=== PATIENT | female | born 1970 | race African-American/Black ===

== ENCOUNTER 2025-08-08 15:54 | Emergency (ER) | payer SELFPAY ==
--- NOTE | 2025-08-08 16:04 | ED.SKABFB ---
HPI - Skin/Abscess/Foreign Bdy General Chief complaint: Skin/Abscess/Foreign Body Stated complaint: bump on neck Time Seen by Provider: 08/08/25 16:17 Source: patient and RN notes reviewed Mode of arrival: ambulatory Limitations: dementia History of Present Illness HPI narrative: 55-year-old female presents concern for red, tender area on her neck. Reports she has had a bump there for about 2 years that was about 2 cm in diameter. Reports over the last several days it has become red, swollen, tender, itchy. She denies any difficulty swallowing. She denies fever, body aches, chills, sweats. She denies drainage. MD complaint: other (Redness) Related Data Home Medications ?Medication ?Instructions ?Recorded ?Confirmed ?Last Taken ?Type Symbicort 08/08/25 Unknown History albuterol 08/08/25 Unknown History pantoprazole 08/08/25 Unknown History Allergies Allergy/AdvReac Type Severity Reaction Status Date / Time codeine Allergy Intermediate Itching Verified 08/08/25 16:21 Review of Systems Review of Systems: CONSTITUTIONAL: Denies malaise, chills, sweats, or fever. EYES: Denies redness, or discharge. ENT: Denies rhinorrhea, congestion, swollen lips, swollen tongue CARDIOVASCULAR: Denies chest pain, palpitations, or edema. RESPIRATORY: Denies cough or dyspnea. GASTROINTESTINAL: Denies abdominal pain, nausea, vomiting SKIN: Reports swelling, tender, red area on her neck Denies purulent drainage, vesicles, bullae, numbness, pain beyond proportion MUSCULOSKELETAL: Denies joint pain or myalgia. NEUROLOGIC: Denies headache. All systems reviewed & are unremarkable except as noted in HPI and below PMFSH Comments At time of signature, agree with nursing past medical, surgical, social and family history. There is no relevant family history pertinent to the presenting complaint Exam Narrative: GENERAL: Well-appearing, well-nourished, and in no acute distress. HEAD: Normocephalic, atraumatic. EYES: PERRLA, conjunctivae clear ENT: Mucous membranes moist. NECK: Supple. No lymphadenopathy CHEST: Clear to auscultation. No respiratory distress. HEART: Regular rate and rhythm. SKIN: Warm, dry. 5.5 x 2.5 cm raise Erythematous, indurated, tender, warm area with sharp margins noted to the anterior neck left of the midline without fluctuation. No vesicles, bullae, necrosis, ecchymosis, crepitus noted. NEURO: Alert and oriented x3. PSYCH: Normal mood and affect Course Course Emergency Course: Patient is aware of diagnosis, understands and agrees to treatment plan. Anticipatory guidance given. Patient agrees to follow-up as directed and is aware of reasons to seek care at the emergency department. Portions of this record may have been created with voice recognition software Level of Care: Express Care Visit Vital Signs Vital signs: Reviewed. MDM - Skin/Abscess/Foreign Bdy MDM Narrative Medical decision making narrative: I evaluated this in the [facility] care. History is obtained from patient who is an independent historian and physical exam was performed.? Available medical records were reviewed. ? Exam findings and relevant testing show no acute concerns or changes; patient is non-toxic appearing and is in no distress. I do not think that it is prudent to incise an attempt to drain at this time due to location and unable to confirm any presence of fluid, with no fluctuation. Patient was instructed to take antibiotic, use warm compresses and monitor the area. She was instructed to follow up if it is not improving or go to the ER for gets worse. Does not appear at this time to be erythema multiforme, bullous, SJS, TEN; no evidence at this time to suggest RMSF, NSTI, endocarditis or Lyme disease; patient looks well, nontoxic and is tolerating oral intake; no neurologic signs or symptoms; no headache, photophobia or neck pain; afebrile.? Patient does not have history of of penetrating trauma, laceration, blunt trauma, recent surgery, immunosuppression, malignancy, obesity, alcoholism, corticosteroid use.? Discussed the importance of follow-up, patient agrees; question, cellulitis versus necrotizing soft tissue infection versus abscess.?? Patient is appropriate for outpatient treatment and follow-up. Critical Care Time Critical Care Time Critical Care Time: No Discharge Plan Discharge Clinical Impression: Infected cyst of skin Patient Disposition: Home Condition: Stable Instructions: Cellulitis (ED) Additional Instructions: Please follow up with your Primary Care Doctor within 48-72 hours - call for an appointment. Rest and elevate affected area; apply moist heat 3-4 times daily for 10-15 minutes. Take Motrin 600mg every 8 hours with food for pain. Please take Antibiotics as directed. If you experience any worsening redness, swelling, streaking (red lines), fever or chills please go to the ER Patient Language: Dominican Prescriptions: New clindamycin HCl 300 mg capsule 300 mg PO Q8H 7 Days Qty: 21 0RF No Action albuterol Symbicort pantoprazole Follow-up/Referrals: Karl,Jass Sotelo MD [Primary Care Provider] Time of Disposition: 16:26
[2025-08-08 16:07] VITALS: BP 115/70; PULSE 88; RESP 16; TEMP 36.8; O2SAT 100
== END 2025-08-08 16:35 | disposition home or self-care (01) ==
PROVIDERS: Emergency Provider Nurse Practitioner; PCP Family Medicine
DX: L72.9 Follicular cyst of the skin and subcutaneous tissue, unspecified (principal); J45.909 Unspecified asthma, uncomplicated; K21.9 Gastro-esophageal reflux disease without esophagitis
CPT/HCPCS: 99203; G0463

== ENCOUNTER 2025-08-11 16:59 | Emergency (ER) | payer MEDICAID, SELFPAY ==
--- NOTE | ~2025-08-11 | CT_ITS ---
EXAMINATION: CT soft tissue neck w con DATE: 08/11/2025 19:34 INDICATION: Abscess TECHNIQUE: Computed tomography (CT) of the neck was performed with 75 mL Omnipaque-350 intravenous contrast. Automated exposure control and iterative reconstruction technique were employed. The dose-length product was 455.56 mGy-cm. COMPARISON: None FINDINGS: Orbits are normal. Small mucous retention cyst at the right sphenoid sinus. Mastoid air cells and middle ear cavities are clear. The right mastoid is hyperpneumatized. Submandibular and parotid glands are normal and symmetric. Thyroid gland is unremarkable. There are scattered normal-sized lymph nodes in the neck, no lymphadenopathy. There is a small region of skin thickening at the anterior neck slightly to the left of midline surrounding a 11 x 10 x 8 mm region of low attenuation consistent with reported draining abscess. No deeper abscess. No masses identified. The vasculature is patent and normal in caliber. Airway is unremarkable. Normal epiglottis. Mild emphysema in the visualized upper lungs. Mild to moderate lower cervical predominant spondylosis. IMPRESSION: 1. Superficial 11 x 10 x 8 mm subcutaneous abscess at the anterior left neck. No evident abscess within the musculature or deeper spaces of the neck Reviewed, dictated and finalized at location A. IMPRESSION: 1. Superficial 11 x 10 x 8 mm subcutaneous abscess at the anterior left neck. N o evident abscess within the musculature or deeper spaces of the neck
--- OUTSIDE RECORDS SUMMARY | 2025-08-11 17:00 | XMS_ITS | Clinical Summary ---
Author Organization [facility] Address [address] [facility] [address] [place] [address] Care Team Providers Care Whey Department Operator Name Role Phone Jass Barajas MD Primary Care Provider [phone] Source Comments [facility],non-owned Affiliates and Associated Physician Practices is amultiple site organization consisting of ambulatory clinics and hospital sitesin [place], [place], [place] and [place]. This disclosure is being madepursuant to the Care Everywhere program and may not contain all information available regarding this patient. Last updated 18.[facility] Health Encounters Date Type Department Care Team Description 05/26/2025 Travel from Last 3 Months Social History Tobacco Use Types Packs/Day Years Used Date Smoking Tobacco: Never Assessed Comments Unknown Sex and Gender Information Value Date Recorded Sex Assigned at Not on file Legal Sex Female 10:49 AM CDT Gender Identity Not on file Sexual Orientation Not on file Plan of Treatment Upcoming Encounters Date Type Department Care Team (Late st Contact Info) Description 08/15/2025 3:10 PM CDT Office Visit [facility] - Dermatology [address] [place] [address], [place] [id number] Halie Guzman MD [address] [place], [place] [address] [id number] Health Maintenance Due Date Last Done Comments COLOGUARD (AGES 45-75) - COL ON CA SCREENING 1971 COLON MONITORING 1971 COLONOSCOPY - COLON CA SCREENING 1971 CT COLONOGRAPHY - COLON CA SCREENING 1971 Colorectal Cancer Screening 1971 FIT - COLON CA SCREENING 1971 FLEX SIG - COLON CA SCREENING 1971 LIPID TESTING 1971 MAMMOGRAM 1971 HIV SCREENING 1986 HEPATITIS C SCREENING 06/02/1989 DTAP/TDAP/TD VACCINES (1 - Tdap) 1990 HEPATITIS B VACCINE (1 of 3 - 19+ 3-dose series) 1990 PAP SMEAR 1992 PNEUMOCOCCAL VACCINE 50+ (1 of 1 - PCV) 2021 ZOSTER VACCINE (1 of 2) 2021 COVID-19 VACCINE (1 - 2023-2 5 season) 2024 DEPRESSION SCREENING 11/30/2024 INFLUENZA VACCINE (#1) 2025 HIB VACCINE Aged Out No longer eligi ble based on patient's age to complete this topic HPV VACCINE Aged Out No longer eligi ble based on patient's age to complete this topic MENINGOCOCCAL (Group B) VACC INE SHARED DECISION-MAKING Aged Out No longer eligibl e based on patient's age to complete this topic MENINGOCOCCAL GROUPS A/C/Y/W VACCINE Aged Out No longer eligible b ased on patient's age to complete this topic Care Teams Whey Department Operator Relationship Specialty Start Date End Date Jass Barajas MD [address] [id number] PCP - General Emergency Medicine 05/26/25
--- OUTSIDE RECORDS SUMMARY | 2025-08-11 17:00 | XMS_ITS | Clinical Summary ---
Author Organization [facility] Address [address] [place] [address] Phone Care Team Providers Care Machine Sewer Name Role Phone Jass Barajas MD Primary Care Provider [phone] Social History Tobacco Use Types Packs/Day Years Used Date Smoking Tobacco: Never Assessed Comments Unknown Sex and Gender Information Value Date Recorded Sex Assigned at Not on file Legal Sex Female 12:30 PM CDT Gender Identity Not on file Sexual Orientation Not on file Plan of Treatment Health Maintenance Due Date Last Done Comments Hepatitis C Virus (HCV) Screening 1971 Mammogram 1971 TdaP Immunization 1971 Hepatitis B Immunization (1 of 3 - 19+ 3-dose series) 1990 Pap Smear 1992 Cervical Cancer Screening (CCS) 2001 HPV/Cotest 2001 Cologuard 2016 Colonoscopy 2016 Colorectal Cancer Screening 2016 Immunochemical Fecal Occult Blood 2016 Pneumococcal Immunization (5 0+ years) (1 of 1 - PCV) 2021 Zoster Immunization (1 of 2) 2021 SARS-COV-2 Immunization ( - 2023-25 season) 2024 Influenza Immunization (#1) 2025 Respiratory Syncytial Virus (RSV) Immunization (Adult) (1 - 1-dose 75+ series) 2046 Human Papillomavirus (HPV) Immunization Aged Out No longer eligible b ased on patient's age to complete this topic Meningococcal Immunization (ACWY) Aged Out No longer eligible based on patient's age to complete this topic Rotavirus Immunization Aged Out No lo nger eligible based on patient's age to complete this topic Insurance [facility] O Care Teams Machine Sewer Relationship Specialty Start Date End Date Jass Barajas MD [address] [place] [address] PCP - General Family Medicine 03/06/25
[2025-08-11 17:35] VITALS: BP 117/77; PULSE 72; RESP 16; TEMP 36.2; O2SAT 100
[2025-08-11 18:58] LABS: Hematocrit 40.9 % (37.0-47.0); Hemoglobin 12.7 g/dL (12.0-15.0); Immature Granulocyte Percent A 0.2 % (0-0.5); Lymphocytes Absolute Auto 2.47 K/mm3 (0.9-3.2); Mean Corpuscular HGB Conc 31.1 g/dl (32-36); Mean Corpuscular Hemoglobin 27.6 pg (26-34); Mean Corpuscular Volume 88.9 fl (80-100); Nucleated Red Blood Cells Absolute Auto 0.000 K/mm3 (0.0-0.012); Nucleated Red Blood Cells Perc 0.0 % (0.0-0.2); Platelet Count Result 371 k/mm3 (150-375); Red Blood Count 4.60 M/mm3 (4.2-5.4); White Blood Count 6.4 K/mm3 (4.5-10.0)
[2025-08-11 19:08] LABS: Alanine Aminotransferase 19 U/L (6-35); Albumin Level 4.3 g/dL (3.5-5.1); Alkaline Phosphatase 50 U/L (38-126); Anion Gap 10 mmol/L (4-12); Aspartate Amino Transferase 31 U/L (14-36); Bilirubin,Total 0.4 mg/dL (0.2-1.3); Blood Urea Nitrogen 13 mg/dL (7-17); Calcium 9.4 mg/dL (8.4-10.2); Carbon Dioxide 29 mmol/L (22-30); Chloride 104 mmol/L (98-107); Estimated CRCL calculation 66 ml/min; Estimated Glomerular Filt Rate 60; Glucose 99 mg/dL (65-110); Potassium 3.3 mmol/L (3.4-5.0); Sodium 143 mmol/L (137-145); Total Protein 7.5 g/dL (6.3-8.2)
--- NOTE | 2025-08-11 20:51 | ED_ITS ---
HPI - Skin/Abscess/Foreign Bdy General Chief complaint: Skin/Abscess/Foreign Body Stated complaint: bump on neck Time Seen by Provider: 08/11/25 18:26 History of Present Illness HPI narrative: Patient is a 55-year-old female who presents ER with concerns for infection to the left anterior neck. She has a cyst that has been present there for several years that has then worsened over the last few days and become much more swollen and tender. She was started on clindamycin at an urgent care. She is on day 4 and she is starting to have drainage from her neck. No difficulty breathing or swallowing. No fevers or chills or sweats. Related Data Home Medications ?Medication ?Instructions ?Recorded ?Confirmed ?Last Taken ?Type Symbicort 08/08/25 Unknown History albuterol 08/08/25 Unknown History pantoprazole 08/08/25 Unknown History Allergies Allergy/AdvReac Type Severity Reaction Status Date / Time codeine Allergy Intermediate Itching Verified 08/11/25 19:04 Review of Systems 2 Review of Systems: All systems reviewed & are unremarkable except as noted in HPI and below Constitutional: Constitutional: Reports no additional constitutional complaints Cardiovascular: Cardiovascular: Reports no additional cardiovascular complaints Respiratory: Respiratory: Reports no additional respiratory complaints Gastrointestinal: Gastrointestinal: Reports no additional gastrointestinal complaints Musculoskeletal: Musculoskeletal: Reports no additional musculoskeletal complaints Integumentary/Breasts: Skin/Breast: Reports system reviewed and no additional complaints, except as docu PMFSH Past Medical History Medical History (Updated 08/11/25 @ 22:57 by Jose Luis Wilkerson MD) GERD (gastroesophageal reflux disease) Asthma Exam 2 Narrative: GENERAL: Well-appearing, well-nourished, and in no acute distress. HEAD: Normocephalic, atraumatic. ENT: Mucous membranes moist. NECK: Left anterior neck swelling with a phone drainage consistent with infected cystic abscess. No significant cellulitis surrounding it. CHEST: Clear to auscultation. No respiratory distress. HEART: Regular rate and rhythm. Normal peripheral pulses. EXTREMITIES: Normal range of motion. No edema. NEURO: Alert and oriented x3. Course Course Emergency Course: Awaiting CT imaging patient educated on delay in care related to Radiology. Lab work normal. Bedside ultrasound appears to be superficial cystic abscess however would like to ensure there is no deep space tracks prior to incision and drainage. CT without evidence of abscess, bedside drainage of the cystic mass performed. Topical antibiotic and bandage applied. Discussed patient should continue clindamycin. Will provide her with pain medicine for home. Follow-up with ENT. Vital Signs Vital signs: Vital Signs Temperature 97.2 F L 08/11/25 17:35 Pulse Rate 72 08/11/25 17:35 Respiratory Rate 16 08/11/25 17:35 Blood Pressure 117/77 08/11/25 17:35 Pulse Oximetry 100 08/11/25 17:35 Temperature 97.2 F L 08/11/25 17:35 Pulse Rate 72 08/11/25 17:35 Respiratory Rate 16 08/11/25 17:35 Blood Pressure 117/77 08/11/25 17:35 Pulse Oximetry 100 08/11/25 17:35 Procedures Abscess I/D neck: Date of Incision: 08/11/25 Time of Incision: 22:54 Local Anesthetic: lidocaine 1% and with epi Amount of anesthesia used (mL): 3 Technique: probed loculations Irrigation: Yes Packing used?: none I&D Results: Pus MDM - Skin/Abscess/Foreign Bdy Lab Data 08/11/25 18:52 08/11/25 18:52 Labs: Lab Results 08/11/25 Range/Units 18:52 WBC 6.4 (4.5-10.0) K/mm3 RBC 4.60 (4.2-5.4) M/mm3 Hgb 12.7 (12.0-15.0) g/dL Hct 40.9 (37.0-47.0) % MCV 88.9 (80-100) fl MCH 27.6 (26-34) pg MCHC 31.1 L (32-36) g/dl RDW 13.1 (11.5-14.5) % Plt Count 371 (150-375) k/mm3 MPV 9.3 (7.4-10.4) fl Immature Gran % (Auto) 0.2 (0-0.5) % Neut % (Auto) 49.8 (45.5-73.1) % Lymph % (Auto) 38.5 (18.3-44.2) % [place] % (Auto) 8.7 H (2.6-8.5) % Eos % (Auto) 2.5 (0-4.4) % Baso % (Auto) 0.3 (0.2-1.2) % Lymph # (Auto) 2.47 (0.9-3.2) K/mm3 [place] # (Auto) 0.6 (0.1-0.6) K/mm3 Eos # (Auto) 0.2 (0-0.3) K/mm3 Baso # (Auto) 0.0 (0.0-0.1) K/mm3 Abs Immat Gran (auto) 0.01 (0.00-0.031) K/mm3 Absolute Neuts (auto) 3.2 (1.3-6.7) K/mm3 Absolute Nucleated RBC 0.000 (0.0-0.012) K/mm3 Nucleated RBC % 0.0 (0.0-0.2) % Sodium 143 (137-145) mmol/L Potassium 3.3 L (3.4-5.0) mmol/L Chloride 104 (98-107) mmol/L Carbon Dioxide 29 (22-30) mmol/L Anion Gap 10 (4-12) mmol/L BUN 13 (7-17) mg/dL Creatinine 0.97 (0.7-1.0) mg/dL Estim Creat Clear Calc 66 ml/min Estimated GFR 60 (59 - ) Glucose 99 (65-110) mg/dL Calcium 9.4 (8.4-10.2) mg/dL Total Bilirubin 0.4 (0.2-1.3) mg/dL AST 31 (14-36) U/L ALT 19 (6-35) U/L Alkaline Phosphatase 50 (38-126) U/L Total Protein 7.5 (6.3-8.2) g/dL Albumin 4.3 (3.5-5.1) g/dL Imaging Data Radiologist's impression: CT soft tissue neck: No evidence for an abscess. No suspicious mass, collection, phlegmon, or abscess. Nasopharynx and oropharynx unremarkable. Larynx and fall/true cords unremarkable. Parotid and submandibular glands unremarkable. No thyroid mass. Predominantly subcentimeter scattered lymph nodes. Largest in the inferior right posterior triangle to by 1 cm. No radiopaque foreign body. No paranasal sinus air-fluid level. Degenerative changes of the spine. No fracture/erosion. Patient is edentulous. Discharge Plan Discharge Clinical Impression: Abscess of skin Patient Disposition: Home Condition: Stable Instructions: Antibiotic Form, Abscess (ED) Additional Instructions: Return ER if cannot breathe, you cannot swallow, or you have additional concerns. Patient Language: Citizen Of [place] Prescriptions: New hydrocodone-acetaminophen 5-325 mg tablet 1 tablet PO Q6H PRN (Reason: pain) Qty: 12 0RF No Action albuterol Symbicort pantoprazole clindamycin HCl 300 mg capsule 300 mg PO Q8H 7 Days Qty: 21 0RF Follow-up/Referrals: Jorge Marin MD [Physician, Ear, Nose, Throat] - 1 Week Karl,Jass Sotelo MD [Primary Care Provider]
--- NOTE | 2025-08-11 21:14 | PC.NURSE ---
Dr. Wilkerson at bedside assessing pt. with ultrasound machine.
[2025-08-11] MEDS: LIDOCAINE 1% LOCAL INJ 10 ML VIAL (21:26)
[2025-08-11 23:07] VITALS: BP 140/77; PULSE 88; RESP 16; TEMP 37; O2SAT 100
== END 2025-08-11 23:08 | disposition home or self-care (01) ==
PROVIDERS: Emergency Provider Emergency Medicine; PCP Family Medicine
DX: L02.11 Cutaneous abscess of neck (principal)
CPT/HCPCS: 10060; 36415; 70491; 80053; 85025; 99284; J2003; J2004; Q9967